=== PATIENT | female | born 2000 | race Caucasian/White ===

== ENCOUNTER 2020-04-26 10:27 | Emergency (ER) | payer BC, OTHER ==
[2020-04-26] MEDS ORDERED: NA CHLORIDE 0.9% 1,000 ML ONE (11:46)
--- NOTE | 2020-04-26 11:47 | RAD REPORT ---
EXAM DESCRIPTION: Kevin Single View04/26/2020 11:32 am CLINICAL HISTORY: cough COMPARISON: none FINDINGS: The lungs appear clear of acute infiltrate. The heart is normal size. The main pulmonary artery is mildly prominent.
[2020-04-26 11:57] LABS: Absolute Lymphocytes (CBC) 2.2 K/uL (0.7-4.9); Basophils % 0.6 % (0-1.3); Hematocrit 41.4 % (36.0-45.0); Lymphocytes % 29.8 % (15.3-44.8); MPV 7.6 fL (7.6-11.3)
[2020-04-26 12:23] LABS: ALT/SGPT 22 U/L (12-78); AST/SGOT 12 U/L (15-37); Alkaline Phosphatase 71 U/L (45-117); BUN Blood Urea Nitrogen 8 mg/dL (7-18); Bicarbonate 25 mmol/L (21-32); Bilirubin Total 0.5 mg/dL (0.2-1.0); Glucose Level 97 mg/dL (74-106); Potassium 3.9 mmol/L (3.5-5.1); Protein, Total 7.2 g/dL (6.4-8.2); Sodium Level 144 mmol/L (136-145); Troponin (Emerg Dept Use Only) < 0.02 ng/mL (0.0-0.045)
[2020-04-26 12:27] LABS: Urine Blood NEGATIVE (NEG); Urine Glucose NEGATIVE (NEG); Urine Protein NEGATIVE (NEG)
--- NOTE | 2020-04-26 12:44 | ER ---
Nurse's Notes [facility] Name: Buffy Mcfadden Age: 19 yrs Sex: Female : 2000 Arrival Date: 04/26/2020 Time: 10:29 Bed 7 Private MD: Diagnosis: Weakness;Syncope and collapse;Congenital pulmonary valve stenosis Presentation: 04/26 10:34 Chief complaint: Patient states: "for the last week or 2 I've been feeling puny and aa5 tired and today I got to work and I felt very dizzy and next type I know I woke up on the floor". Pt reports syncopal episode for a few seconds. Pt denies nausea/vomiting, denies pain, denies cough, denies fever, denies sore throat. Pt's father states "she's been on [employer]risystem for about 5 months and has lost a lot of weight so I don't know if that is contributing to it". 10:34 Onset of symptoms was April 26, 2020. aa5 10:34 Acuity: GEOVANNA 3 aa5 10:34 Coronavirus screen: Proceed with normal triage. Patient denies a cough. Patient denies aa5 shortness of breath or difficulty breathing. Patient denies measured and/or subjective temperature greater than 100.4F prior to today's visit. Patient denies travel on a cruise ship or to a country the [facility] currently lists as an affected area. Patient denies contact with known and/or suspected case of COVID-19. 10:34 Method Of Arrival: Ambulatory aa5 10:34 Ebola Screen: Patient negative for fever greater than or equal to 101.5 degrees aa5 Fahrenheit, and additional compatible Ebola Virus Disease symptoms. Risk Assessment: Do you want to hurt yourself or someone else? Patient reports no desire to harm self or others. 10:34 Initial Sepsis Screen: Does the patient meet any 2 criteria? No. Patient's initial aa5 sepsis screen is negative. Does the patient have a suspected source of infection? No. Patient's initial sepsis screen is negative. Triage Assessment: 10:40 General: Appears in no apparent distress. comfortable, Behavior is cooperative, bp appropriate for age, anxious. Pain: Denies pain. EENT: No deficits noted. Neuro: Reports dizziness, a syncopal episode. Cardiovascular: Rhythm is sinus rhythm. Respiratory: No deficits noted. GI: No signs and/or symptoms were reported involving the gastrointestinal system. : No signs and/or symptoms were reported regarding the genitourinary system. Derm: No deficits noted. Musculoskeletal: No deficits noted. Historical: - Allergies: 10:34 Bees; aa5 - Home Meds: 10:34 None [Active]; aa5 - PMHx: 10:34 Pulmonary Valve Stenosis; aa5 - PSHx: 10:34 None; aa5 - Immunization history:: Adult Immunizations up to date. - Social history:: Smoking status: Patient denies any tobacco usage or history of. - Family history:: not pertinent. Screenin:40 Abuse screen: Denies threats or abuse. Denies injuries from another. Nutritional bp screening: No deficits noted. Tuberculosis screening: No symptoms or risk factors identified. Fall Risk Fall in past 12 months (25 points). No secondary diagnosis (0 pts). No IV (0 pts). Ambulatory Aid- None/Bed Rest/Nurse Assist (0 pts). Gait- Normal/Bed Rest/Wheelchair (0 pts) Mental Status- Oriented to own ability (0 pts). Total Phillips Fall Scale indicates Low Risk Score (25-44 pts). Fall prevention measures have been instituted. Side Rails Up X 2 Placed close to Nursing Station Frequent Obs/Assesments occuring As available Patient and Family Educated on Fall Prevention Program and strategies. Assessment: 10:40 General: SEE TRIAGE NOTE. bp 10:50 General: Appears in no apparent distress. comfortable, Behavior is anxious. Pain: rb1 Denies pain. Neuro: Level of Consciousness is awake, alert, obeys commands, Oriented to person, place, time, situation. Neuro: Reports dizziness, a syncopal episode. Cardiovascular: Capillary refill < 3 seconds. Respiratory: Airway is patent Respiratory effort is even, unlabored, Respiratory pattern is regular, symmetrical. GI: No signs and/or symptoms were reported involving the gastrointestinal system. : No signs and/or symptoms were reported regarding the genitourinary system. Derm: Skin is pink, warm \\T\\ dry. 11:49 Reassessment: ALL CURRENT ORDERS COMPLETED, RESULTS PENDING. bp 12:17 Reassessment: Patient appears in no apparent distress at this time. Gave the pt. ice rb1 chips. Father at the bedside. 12:59 Reassessment: Patient appears in no apparent distress at this time. Patient and/or rb1 family updated on plan of care and expected duration. Pain level reassessed. Patient is alert, oriented x 3, equal unlabored respirations, skin warm/dry/pink. 13:10 Reassessment: Discharge pending due to pt wanting to speak with Dr. Mooney. Dr. suresh Mooney notified. 13:47 Reassessment: Patient appears in no apparent distress at this time. No changes from [facility] previously documented assessment. Vital Signs: 10:34 BP 139 / 95; Pulse 98; Resp 18 S; Temp 98.6(O); Pulse Ox 100% on R/A; Weight 78.47 kg aa5 (R); Height 5 ft. 6 in. (167.64 cm) (R); Pain 0/10; 11:46 BP 133 / 80; Pulse 72; Resp 15; Temp 98.3(TE); Pulse Ox 99% on R/A; 5 12:51 BP 120 / 71 Supine; Pulse 79; Pulse Ox 99% ; rb1 12:53 BP 121 / 74 Sitting; Pulse 68; Pulse Ox 100% ; rb1 12:55 BP 114 / 86 Standing; Pulse 75; Pulse Ox 100% ; rb1 13:15 BP 117 / 84; Pulse 62; Resp 19; Pulse Ox 99% on R/A; rb1 10:34 Body Mass Index 27.92 (78.47 kg, 167.64 cm) aa5 ED Course: 10:29 Patient arrived in ED. as 10:34 Suly Pastor, RN is Primary Nurse. rb1 10:34 Arm band placed on Patient placed in an exam room, on a stretcher. aa5 10:35 Abdifatah Mooney MD is Attending Physician. abram 10:40 Patient has correct armband on for positive identification. Placed in gown. Bed in low bp position. Call light in reach. Side rails up X2. Adult w/ patient. 10:44 Triage completed. aa5 11:32 Chest Single View XRAY In Process Unspecified. EDMS 11:43 Warm blanket given. patient monitor on. Pulse ox on. NIBP on. mh5 11:43 Urine collected: clean catch specimen, clear. 5 11:45 Inserted saline lock: 20 gauge in right antecubital area, using aseptic technique. bp Blood collected. 12:43 Jonathan Madden MD is Referral Physician. [facility] 13:48 No provider procedures requiring assistance completed. IV discontinued, intact, rb1 bleeding controlled, No redness/swelling at site. Pressure dressing applied. Administered Medications: 11:45 Drug: NS 0.9% 1000 ml Route: IV; Rate: 1 bolus; Site: right antecubital; bp 12:53 Follow up: IV Status: Completed infusion rb1 Outcome: 12:43 Discharge ordered by MD. [facility] 13:48 Discharged to home ambulatory, with family. rb1 13:48 Condition: stable 13:48 Discharge instructions given to patient, Instructed on discharge instructions, follow up and referral plans. Demonstrated understanding of instructions, follow-up care, Prescriptions given X none 13:49 Patient left the ED. aa5 Signatures: Dispatcher [employer] EDMS Abdifatah Mooney MD MD cha Martinez, Amelia as Calderon, Audri, RN RN aa5 Suly Pastor RN RN Janki Bauer 5 Cesario Ramírez RN RN bp Corrections: (The following items were deleted from the chart) 10:46 10:34 Chief complaint: Patient states: "for the last week or 2 I've been feeling puny aa5 and tired and today I got to work and I felt very dizzy and next type I know I woke up on the floor". Pt reports syncopal episode for a few seconds. Pt denies nausea/vomiting, denies pain, denies cough, denies fever, denies sore throat. aa5
--- NOTE | 2020-04-26 12:45 | EDPHYS ---
Physician Documentation [facility] Name: Buffy Mcfadden Age: 19 yrs Sex: Female : 2000 Arrival Date: 04/26/2020 Time: 10:29 Bed 7 Private MD: ED Physician Abdifatah Mooney HPI: 04/26 11:23 This 19 yrs old Female presents to ER via Ambulatory with complaints of abram Dizziness, Passed Out Prior To Arrival, Fatigue. 11:23 The patient presents with dizziness, feeling faint. Onset: The symptoms/episode abram began/occurred just prior to arrival. Context: occurred while the patient was standing. Modifying factors: The symptoms are alleviated by nothing, the symptoms are aggravated by nothing. Associated signs and symptoms: The patient has no apparent associated signs or symptoms. Severity of symptoms: At their worst the symptoms were mild in the emergency department the symptoms are unchanged. Patient's baseline: Neuro: alert and fully oriented. The patient has not experienced similar symptoms in the past. Historical: - Allergies: 10:34 Bees; aa5 - Home Meds: 10:34 None [Active]; aa5 - PMHx: 10:34 Pulmonary Valve Stenosis; aa5 - PSHx: 10:34 None; aa5 - Immunization history:: Adult Immunizations up to date. - Social history:: Smoking status: Patient denies any tobacco usage or history of. - Family history:: not pertinent. ROS: 11:23 Constitutional: Negative for fever, chills, and weight loss, Eyes: Negative for injury, abram pain, redness, and discharge, ENT: Negative for injury, pain, and discharge, Neck: Negative for injury, pain, and swelling, Cardiovascular: Negative for chest pain, palpitations, and edema, Respiratory: Negative for shortness of breath, cough, wheezing, and pleuritic chest pain, Abdomen/GI: Negative for abdominal pain, nausea, vomiting, diarrhea, and constipation, Back: Negative for injury and pain, : Negative for injury, bleeding, discharge, and swelling, MS/Extremity: Negative for injury and deformity, Skin: Negative for injury, rash, and discoloration, Neuro: Negative for headache, weakness, numbness, tingling, and seizure, Psych: Negative for depression, anxiety, suicide ideation, homicidal ideation, and hallucinations, Endocrine: Negative for neck swelling, polydipsia, polyuria, polyphagia, and marked weight changes, Hematologic/Lymphatic: Negative for swollen nodes, abnormal bleeding, and unusual bruising. Exam: 11:23 Constitutional: This is a well developed, well nourished patient who is awake, alert, abram and in no acute distress. Head/Face: Normocephalic, atraumatic. Eyes: Pupils equal round and reactive to light, extra-ocular motions intact. Lids and lashes normal. Conjunctiva and sclera are non-icteric and not injected. Cornea within normal limits. Periorbital areas with no swelling, redness, or edema. ENT: Nares patent. No nasal discharge, no septal abnormalities noted. Tympanic membranes are normal and external auditory canals are clear. Oropharynx with no redness, swelling, or masses, exudates, or evidence of obstruction, uvula midline. Mucous membranes moist. Neck: Trachea midline, no thyromegaly or masses palpated, and no cervical lymphadenopathy. Supple, full range of motion without nuchal rigidity, or vertebral point tenderness. No Meningismus. Chest/axilla: Normal chest wall appearance and motion. Nontender with no deformity. No lesions are appreciated. Cardiovascular: Regular rate and rhythm with a normal S1 and S2. No gallops, murmurs, or rubs. Normal PMI, no JVD. No pulse deficits. Respiratory: Lungs have equal breath sounds bilaterally, clear to auscultation and percussion. No rales, rhonchi or wheezes noted. No increased work of breathing, no retractions or nasal flaring. Abdomen/GI: Soft, non-tender, with normal bowel sounds. No distension or tympany. No guarding or rebound. No evidence of tenderness throughout. Back: No spinal tenderness. No costovertebral tenderness. Full range of motion. Skin: Warm, dry with normal turgor. Normal color with no rashes, no lesions, and no evidence of cellulitis. MS/ Extremity: Pulses equal, no cyanosis. Neurovascular intact. Full, normal range of motion. Neuro: Awake and alert, GCS 15, oriented to person, place, time, and situation. Cranial nerves II-XII grossly intact. Motor strength 5/5 in all extremities. Sensory grossly intact. Cerebellar exam normal. Normal gait. Psych: Awake, alert, with orientation to person, place and time. Behavior, mood, and affect are within normal limits. 11:23 Musculoskeletal/extremity: DVT Exam: No signs of deep vein thrombosis. no pain, no swelling, no tenderness, negative Homans' sign noted on exam, no appreciated bluish discoloration, no erythema, no increased warmth. 11:27 ECG was reviewed by the Attending Physician. abram 13:13 Neuro: Orientation: is normal, appropriate for stated age, no acute changes, Mentation: abram is normal, appropriate for stated age, no acute changes, Memory: is normal, appropriate for stated age, no acute changes, Cranial nerves: grossly normal, is grossly normal based on the patient's age, no acute changes, Cerebellar function: is grossly normal, is grossly normal based on the patient's age, no acute changes, Motor: moves all fours, strength is normal, strength is 5/5 in all extremities, Sensation: is normal, no obvious gross deficits, appropriate no acute changes, Gait: is steady, appropriate for age, Deep tendon reflexes are 2+ (normal) in the bilateral brachioradialis, bicep, tricep and patellar and Achilles tendons, Babinski testing is normal, seizure activity, is not displayed by the patient, Abnormal movements: there are no abnormal movements. Vital Signs: 10:34 BP 139 / 95; Pulse 98; Resp 18 S; Temp 98.6(O); Pulse Ox 100% on R/A; Weight 78.47 kg aa5 (R); Height 5 ft. 6 in. (167.64 cm) (R); Pain 0/10; 11:46 BP 133 / 80; Pulse 72; Resp 15; Temp 98.3(TE); Pulse Ox 99% on R/A; mh5 12:51 BP 120 / 71 Supine; Pulse 79; Pulse Ox 99% ; rb1 12:53 BP 121 / 74 Sitting; Pulse 68; Pulse Ox 100% ; rb1 12:55 BP 114 / 86 Standing; Pulse 75; Pulse Ox 100% ; rb1 13:15 BP 117 / 84; Pulse 62; Resp 19; Pulse Ox 99% on R/A; rb1 10:34 Body Mass Index 27.92 (78.47 kg, 167.64 cm) aa5 MDM: 10:35 Patient medically screened. [facility] 11:26 Data reviewed: vital signs, nurses notes, lab test result(s), EKG, radiologic studies, abram plain films. 12:40 Differential diagnosis: cardiac arrhythmia, generalized weakness, head injury, abram hypovolemia, idiopathic dizziness, near-syncope, , syncope, vertigo. Data interpreted: cardiac monitor: rate is 72 beats/min, Pulse oximetry: on room air is 99 %. Test interpretation: by ED physician or midlevel provider: ECG, plain radiologic studies. Counseling: I had a detailed discussion with the patient and/or guardian regarding: the historical points, exam findings, and any diagnostic results supporting the discharge/admit diagnosis, lab results, radiology results, the need for outpatient follow up, for definitive care, a packing machine feeder. Response to treatment: the patient's symptoms have markedly improved after treatment. ED course: pt will be dc'd with close follow up, dr madden to see, limit work. 13:14 ED course: pt and dad explained the importance of cardiology follow up with dr madden. [facility] 04/26 11:23 Order name: CBC with Diff; Complete Time: 12:[address] [facility] 04/26 11:23 Order name: Comprehensive Metabolic Panel; Complete Time: 12:[address] [facility] 04/26 11:23 Order name: TSH; Complete Time: 12:[address] [facility] 04/26 11:23 Order name: Troponin (emerg Dept Use Only); Complete Time: 12:[address] [facility] 04/26 11:26 Order name: D-Dimer; Complete Time: 12:[address] [facility] 04/26 11:55 Order name: Urine Dipstick--Ancillary (enter results); Complete Time: 12:40 04/26 11:23 Order name: EKG; Complete Time: 11:24 abram 04/26 11:23 Order name: EKG - Nurse/Tech; Complete Time: 11:[address] [facility] 04/26 11:23 Order name: Chest Single View XRAY; Complete Time: 12:[address] [facility] 04/26 11:23 Order name: Urine Dipstick-Ancillary (obtain specimen); Complete Time: 11:[address] [facility] 04/26 11:23 Order name: Urine Test (obtain specimen); Complete Time: 11:[address] [facility] 04/26 11:55 Order name: Urine --Ancillary (enter results); Complete Time: 12:40 04/26 12:40 Order name: Orthostatics; Complete Time: 12:[address] [facility] EC:27 Rate is 106 beats/min. Rhythm is regular. QRS [place] is Normal. MS interval is normal. abram QRS interval is normal. QT interval is normal. No Q waves. T waves are Normal. No ST changes noted. Clinical impression: Sinus tachycardia. Interpreted by me. Reviewed by me. Administered Medications: 11:45 Drug: NS 0.9% 1000 ml Route: IV; Rate: 1 bolus; Site: right antecubital; bp 12:53 Follow up: IV Status: Completed infusion rb1 Disposition: 04/26/20 12:43 Discharged to Home. Impression: Weakness, Syncope and collapse, Congenital pulmonary valve stenosis. - Condition is Stable. - Discharge Instructions: Near-Syncope, Syncope, Weakness, Fatigue, Near-Syncope, [id number], Syncope, [id number], Weakness, [id number]. - Work release form, Medication Reconciliation Form, Thank You Letter, Antibiotic Education, Prescription Opioid Use form. - Follow up: Private Physician; When: 2 - 3 days; Reason: Recheck today's complaints, Continuance of care, Re-evaluation by your physician. Follow up: Jonathan Madden MD; When: 2 - 3 days; Reason: Recheck today's complaints, Continuance of care, Re-evaluation by your physician. - Problem is new. - Symptoms have improved. Signatures: Dispatcher [employer] EDMS Abdifatah Mooney MD MD cha Calderon, Audri, RN RN aa5 Cesario Ramírez RN RN Suly Song RN rb1 Corrections: (The following items were deleted from the chart) 13:49 12:43 04/26/2020 12:43 Discharged to Home. Impression: Weakness; Syncope and collapse; aa5 Congenital pulmonary valve stenosis. Condition is Stable. Forms are Medication Reconciliation Form, Thank You Letter, Antibiotic Education, Prescription Opioid Use. Follow up: Private Physician; When: 2 - 3 days; Reason: Recheck today's complaints, Continuance of care, Re-evaluation by your physician. Follow up: Jonathan Madden; When: 2 - 3 days; Reason: Recheck today's complaints, Continuance of care, Re-evaluation by your physician. Problem is new. Symptoms have improved. abram
[2020-04-26 14:01] VITALS: TEMP 98.6
[2020-04-26 14:08] VITALS: BP 117/84; O2SAT 99
== END 2020-04-26 13:49 | disposition home or self-care (01) ==
LOC: ER 10:27
DX: Q22.1 Congenital pulmonary valve stenosis (principal); R53.1 Weakness; Z91.030 Bee allergy status
CPT/HCPCS: 93005; 85025; 36415; 81025; 85379; 84443; 81003; 84484; 80053; 71045; 96360; 99284; J7030

== ENCOUNTER → 2023-11-10 | Emergency (ER) | payer OTHER ==
--- OUTSIDE RECORDS SUMMARY | 2023-11-10 13:45 | XMS REPORT | Continuity of Care Document ---
Author Name Unknown Address [address] [facility] [address] [place] [address] [facility] thconnect Address [address] [place] [address] Care Team Providers Care Stab Setter And Driller Name Role Phone LORI KENNEY Attending Clinician Unavailable GC_CARISSA_Noorpriti Attending Clinician Unavail able HENRRY MAURICE Attending Clinician Unavailable LAB90 Attending Clinician Unavailable GC_CARISSA_Noorpriti Admitting Clinician Unavail able Payers Payer Name Policy Type Policy Number Effective Date Expirati on Date Source [facility] 3 [id number] 2022 00:00:00 [facility] [id number] Problems Condition Name Condition Details Condition Category Status Onset Date Resolution Date Last Treatment Date Treating Clinician Comments Source Moderate persistent asthma with acute exacerbati on Moderate persistent asthma with acute exacerbati on Disease Active 2021-11 00:00: 00 Yolanda colon Seasonal allergic rhinitis due to pollen Seasonal allergic rhinitis due to pollen Disease Active 2021-11 00:00: 00 Yolanda Ocampoa isaiah Nonrheumat ic pulmonary valve stenosis Nonrheumat ic pulmonary valve stenosis Disease Active 2021-11 00:00: 00 Overview: Formattin g of this note might be different from the original. Cardiolog y-Dr. Chano colon Bronchitis Bronchitis Disease Active 2021-11 00:00: 00 Yolanda Bass Externa isaiah Other fatigue Other fatigue Disease Active 2021-11 00:00: 00 Yolanda Ocampoa isaiah Social History Social Habit Start Date Stop Date Quantity Comments Source History SDOH Alcohol Frequency Yolanda rowe - External History SDOH Alcohol Std Drinks Yolanda baker - External History SDOH Alcohol Binge Yolanda Savage - External Education 2022-10-21 00:00:00 2022-10-21 00:00:00 13 Yolanda Savage - External Tobacco use and exposure 2022-10-21 00:00:00 2022-10-21 00:00:00 Smokeless tobacco non-user Yolanda Savage - External Alcohol intake 2022-10-21 00:00:00 2022-10-21 00:00:00 Current drinker of alcohol (finding) Yolanda Savage - External Alcohol Comment 2022-10-21 00:00:00 2022-10-21 00:00:00 rarely Yolandasonja Savage - Melecio Sex Assigned At 2000 00:00:00 2000 00:00:00 Yolanda Savage - External Smoking Status Start Date Stop Date Source Never smoked tobacco Yolanda Savage - External Medications Ordered Medication Name Filled Medication Name Start Date Stop Date Current Medication? Ordering Clinician Indication Dosage Frequency Signature (SIG) Comments Components Source Cetirizine 10 MG oral Tablet 2021-11 13:44: 03 Yes 10mg Take 10 mg by mouth daily Yolanda colon predniSONE (DELTASONE) 10 MG oral tablet 2021-11 00:00: 00 Yes [id number] 10mg Take 1 tablet (10 mg total) by mouth daily Yolanda colon Fluticasone -Salmeterol (Advair Diskus) 250-50 MCG/ACT inhalation AEROSOL POWDER, BREATH ACTIVATED 2021-11 00:00: 00 Yes [id number] 1{puff} Inhale 1 puff into the lungs 2 times daily Yolanda colon Albuterol HFA 108 (90 Base) MCG/ACT IN AERS 2021-11 00:00: 00 Yes [id number] 2{puff} Q.25D Inhale 2 puffs into the lungs every 6 hours as needed for wheezing Yolanda colon FLUTICASONE PROPIONATE, NASAL, 50 MCG/ACT nasal Suspension 2021-11 00:00: 00 Yes [id number] 50ug Use 1 spray (50 mcg total) in each nostril daily Yolanda colon Albuterol HFA 108 (90 Base) MCG/ACT IN AERS 2021-11 00:00: 00 11-02 00:00 :00 No TAKE 1 (INHALATIO N) EVERY 4 HOURS ( NEEDED FOR COUGH) Yolanda colon Trazodone HCl 100 MG oral Tablet 2021-11 09:26: 26 Yes 100mg Take 100 mg by mouth nightly Yolanda Bass Externa isaiah Trazodone HCl 100 MG oral Tablet 2021-11 09:26: 26 Yes 100mg Take 100 mg by mouth nightly Yolanda colon Benzonatate (Tessalon Perles) 100 MG oral Capsule 2021-11 00:00: 00 Yes [id number] 100mg Q.[id number] 3D Take 1 capsule (100 mg total) by mouth 3 times daily as needed for cough Yolanda colon predniSONE (DELTASONE) 10 MG oral tablet 2021-11 00:00: 00 Yes [id number] One pill twice daily for 5 days then one pill daily for 5 days Yolanda colon Benzonatate (Tessalon Perles) 100 MG oral Capsule 2021-11 00:00: 00 Yes [id number] 100mg Q.[id number] 3D Take 1 capsule (100 mg total) by mouth 3 times daily as needed for cough Yolanda colon predniSONE (DELTASONE) 10 MG oral tablet 2021-11 00:00: 00 11-02 00:00 :00 No [id number] One pill twice daily for 5 days then one pill daily for 5 days Yolanda colon Azithromyci n 250 MG oral Tablet 2021-11 00:00: 00 10-27 05:59 :00 No [id number] Take 2 tablets by mouth on day 1 then 1 tablet by mouth daily for 4 days thereafter . Yolanda colon Albuterol HFA 108 (90 Base) MCG/ACT IN AERS 2021-11 00:00: 00 Yes TAKE 1 (INHALATIO N) EVERY 4 HOURS ( NEEDED FOR COUGH) Yolanda colon Cefdinir 300 MG oral Capsule 2021-11 00:00: 00 Yes TAKE 1 CAPSULE BY MOUTH TWICE A DAY FOR 10 DAYS Yolanda colon Cefdinir 300 MG oral Capsule 2021-11 00:00: 00 11-02 00:00 :00 No TAKE 1 CAPSULE BY MOUTH TWICE A DAY FOR 10 DAYS Yolanda colon Promethazin e-DM 6.25-15 MG/5ML oral Syrup 2021-11 00:00: 00 10-21 00:00 :00 No 5mL Q.25D Take 5 mL by mouth every 6 hours as needed Yolanda colon Vital Signs Vital Name Observation Time Observation Value Comments S ource Systolic blood pressure 2022-10-21 15:23:00 102 mm[Hg] Yolanda hardy - External Diastolic blood pressure 2022-10-21 15:23:00 60 mm[Hg] Yolanda hardy - External Heart rate 2022-10-21 15:23:00 92 /min Yuko Savage - External Body temperature 2022-10-21 15:23:00 36.78 Rhoda Yolanda Savage - External Respiratory rate 2022-10-21 15:23:00 20 /min Yolanda Savage - External Body height 2022-10-21 15:23:00 175.3 cm Nunu Savage - External Body weight 2022-10-21 15:23:00 90.538 kg Nunu Savage - External BMI 2022-10-21 15:23:00 29.48 kg/m2 Nunu Savage - External Oxygen saturation in Arterial blood by Pulse oximetry 2022-10-21 15:23:00 97 /min Yolanda hardy - External Encounters Start Date/Time End Date/Time Encounter Type Admission Type Attending [facility] Care Department Encounter ID Source 2023-04-28 14:45:00 2023-04-28 14:45:00 Outpatient LORI KENNEY [id number] Yolanda Savage 2022-12-27 00:00:00 2022-12-27 00:00:00 Outpatient GC_SWHAOMC_ Nooruddin PRIV PRIV [id number] [facility] 2022-12-26 00:00:00 2022-12-26 00:00:00 Outpatient [facility] PRIV [id number] [facility] 2022-11-24 10:45:00 2022-11-24 10:45:00 Outpatient PREZAS, HENRRY YOLANDA GUERRERO [id number] [facility] 2022-11-18 09:15:00 2022-11-18 09:15:00 Outpatient PREZAS, HENRRY GUERRERO [id number] [facility] 2022-11-02 13:45:00 2022-11-02 13:45:00 Outpatient PREZAS, HENRRY GUERRERO [id number] [facility] 2022-11-02 00:00:00 2022-11-02 00:00:00 Outpatient PREZAS, HENRRY GUERRERO [id number] [facility] 2022-11-01 00:00:00 2022-11-01 00:00:00 Outpatient PREZAS, HENRRY GUERRERO [id number] [facility] 2022-10-22 09:15:00 2022-10-22 09:15:00 Outpatient LAB90 YOLANDA GUERRERO [id number] [facility] 2022-10-21 10:00:00 2022-10-21 10:00:00 Outpatient LAB90 YOLANAD GUERRERO [id number] [facility] 2022-10-21 09:30:00 2022-10-21 09:30:00 Outpatient PREZAS, HENRRY GUERRERO [id number] Yolanda [facility]
--- NOTE | 2023-11-10 15:17 | RAD REPORT ---
EXAM DESCRIPTION: RAD - Chest Single View - 11/10/2023 3:11 pm CLINICAL HISTORY: CHEST PAIN COMPARISON: <Comparisons> FINDINGS: Lines: None. Lungs: No evidence of edema or pneumonia. Pleural: No significant pleural effusions or pneumothorax. Cardiac: The heart size is within normal limits. Mediastinum: Within normal limits. Bones: No acute fractures. Other: None IMPRESSION: No acute cardiopulmonary disease.
[2023-11-10 15:59] LABS: Absolute Lymphocytes (CBC) 2.2 K/uL (0.7-4.9); Hematocrit 42.3 % (36.0-45.0); Lymphocytes % 25.4 % (15.3-44.8); MCV 85.8 fL (80-100); MPV 7.1 fL (7.6-11.3); Platelets 317 thou/uL (152-406); RBC Red Blood Cell Count 4.93 M/uL (3.86-4.86)
[2023-11-10 16:13] LABS: BUN Blood Urea Nitrogen 7 mg/dL (7-18); Bicarbonate 25 mEq/L (21-32); Glomerular Filtration Rate 111 ml/min (=/>90); Glucose Level 84 mg/dL (74-106); NT PRO-BNP 8 pg/mL (<125); Sodium Level 138 mEq/L (136-145)
[2023-11-10 16:17] LABS: Potassium 3.9 mEq/L (3.5-5.1); Troponin High Sensitivity < 3.0 pg/mL (<58.9)
--- NOTE | 2023-11-10 16:50 | EDPHYS ---
Physician Documentation [facility] Name: Buffy Mcfadden Age: 23 yrs Sex: Female : 2000 Arrival Date: 11/10/2023 Time: 13:42 Bed 11 Private MD: ED Physician Sanjeev Wolf HPI: 11/10 14:33 This 23 yrs old Female presents to ER via Ambulatory with complaints of Chest Pain. ec2 14:33 Patient arrives today due to concern for chest pain. States that she experiencing chest ec2 pain and palpitations as well as diffuse upper and lower extremity numbness. States that symptoms started approximately several hours ago. Patient reports no significant difficulty breathing. Reports that she is on an appetite suppression medication, also had taken some caffeine today. Denies any histories of significant medical disease, no cardiac disease, no history of blood clots.. KITCHEN CHEF: 15:45 LMP N/A - control method, Not tl4 Historical: - Allergies: 14:24 Bees; cm10 - PMHx: 14:24 Pulmonary valve stenosis; cm10 - Immunization history:: Adult Immunizations unknown. - Social history:: Smoking status: Patient denies any tobacco usage or history of. ROS: 14:33 Constitutional: as per hpi ec2 Exam: 14:33 Constitutional: GEN: NAD Head: atraumatic Eyes: EOMI Ears: External ears are ec2 normal. CV: Tachycardia LUNGS: no respiratory distress, no wheezes, no rales, no rhonchi ABD: non-distended SKIN: no evidence of rashes MSK: no evidence of trauma NEURO: moves all extremities equally Vital Signs: 14:25 BP 140 / 101; Pulse 110; Resp 18; Temp 98.3; Pulse Ox 100% ; Weight 88.45 kg; Height 5 cm10 ft. 4 in. ; Pain 0/10; 15:30 BP 111 / 77; Pulse 92; Resp 20; Pulse Ox 100% on R/A; Pain 0/10; tl4 16:15 BP 130 / 91; Pulse 91; Resp 20; Pulse Ox 100% on R/A; Pain 0/10; tl4 16:48 Pulse 95; ec2 14:25 Body Mass Index 33.47 (88.45 kg, 162.56 cm) cm10 14:25 Pain Scale: Adult cm10 15:30 Pain Scale: Adult tl4 16:15 Pain Scale: Adult tl4 MDM: 14:22 Patient medically screened. ec2 14:33 Data reviewed: vital signs. ED course: Patient arrives today for evaluation of chest ec2 pain. Examination remarkable for well-appearing nontoxic individual is otherwise in no acute distress was noted with tachycardia on examination. Will obtain lab work, EKG, chest x-ray for further assessment of the patient and plan. Currently considering processes such as ACS, PE, low suspicion for dissection. Additionally possible medication reaction with a caffeine taken today.. 15:28 ED course: Chest x-ray shows no acute intrathoracic process.. ec2 15:41 ED course: EKG independently reviewed and interpreted by me, shows normal sinus rhythm, ec2 rate 99, no acute ST segment elevations, nonconcerning intervals.. 16:03 ED course: CBC is reassuring. D-dimer within normal ranges.. ec2 16:20 ED course: Metabolic profile is reassuring. Troponin is undetectable, BNP within normal ec2 ranges. . 16:48 ED course: I reassessed the patient remains well-appearing in no acute distress. Will ec2 discharge home have follow-up with primary care doctor instructed her on caffeine cessation which I suspect is the root of the patient's problem.. 12 14:33 Order name: Basic Metabolic Panel; Complete Time: 16:20 ec2 11/10 14:33 Order name: CBC with Diff; Complete Time: 16:03 ec2 11/10 14:33 Order name: D-Dimer; Complete Time: 16:03 ec2 11/10 14:33 Order name: NT PRO-BNP; Complete Time: 16:20 ec2 11/10 14:33 Order name: Troponin HS; Complete Time: 16:20 ec2 11/10 14:33 Order name: Test, Urine; Complete Time: 16:41 ec2 11/10 14:33 Order name: XRAY Chest (1 view); Complete Time: 15:28 ec2 11/10 14:33 Order name: EKG; Complete Time: 14:33 ec2 11/10 14:33 Order name: Cardiac monitoring; Complete Time: 15:07 ec2 11/10 14:33 Order name: EKG - Nurse/Tech; Complete Time: 15:43 ec2 11/10 14:33 Order name: IV Saline Lock; Complete Time: 15:43 ec2 11/10 14:33 Order name: Labs collected and sent; Complete Time: 15:43 ec2 11/10 14:33 Order name: O2 Per Protocol; Complete Time: 15:07 ec2 11/10 14:33 Order name: O2 Sat Monitoring; Complete Time: 15:07 ec2 11/10 16:20 Order name: Vital Signs; Complete Time: 17:01 ec2 Administered Medications: No medications were administered Disposition Summary: 11/10/23 16:49 Discharge Ordered Notes: Location: Home ec2 Condition: Stable ec2 Diagnosis - Palpitations ec2 Followup: ec2 - With: Private Physician - When: - Reason: Recheck today's complaints Discharge Instructions: - Discharge Summary Sheet ec2 - Palpitations ec2 Forms: - Medication Reconciliation Form ec2 - Thank You Letter ec2 - Antibiotic Education ec2 - Prescription Opioid Use ec2 - Patient Portal Instructions ec2 - Leadership Thank You Letter ec2 Signatures: Dispatcher [employer] Lou Maldonado RN RN cm10 Sanjeev Wolf MD MD ec2
--- NOTE | 2023-11-10 16:50 | ER ---
Nurse's Notes [facility] Name: Buffy Mcfadden Age: 23 yrs Sex: Female : 2000 Arrival Date: 11/10/2023 Time: 13:42 Bed 11 Private MD: Diagnosis: Palpitations Presentation: 11/10 14:25 Chief complaint: Patient states: Chest pain to the center of her chest that radiated cm10 down her back onset today at 0945. Pt states that the pain has now resolved. Pt reports that she was also having tingling to her arms and legs. Coronavirus screen: Vaccine status: Patient reports receiving the 2nd dose of the covid vaccine. Client denies travel out of the [place] in the last 14 days. Ebola Screen: Patient denies travel to an Ebola-affected area in the 21 days before illness onset. No symptoms or risks identified at this time. Initial Sepsis Screen: Does the patient meet any 2 criteria? No. Patient's initial sepsis screen is negative. Does the patient have a suspected source of infection? No. Patient's initial sepsis screen is negative. Risk Assessment: Do you want to hurt yourself or someone else? Patient reports no desire to harm self or others. Onset of symptoms was November 10, 2023. 14:25 Method Of Arrival: Ambulatory cm10 14:25 Acuity: GEOVANNA 3 cm10 Triage Assessment: 14:27 General: Appears in no apparent distress. comfortable, Behavior is calm, cooperative. cm10 Pain: Denies pain. Neuro: No deficits noted. Ramirez Agitation-Sedation Scale (RASS): 0 - Alert and Calm Level of Consciousness is awake, alert, obeys commands, Oriented to person, place, time, situation. Cardiovascular: Reports chest pain, shortness of breath, Patient's skin is warm and dry. FLEET TECHNICIAN: 15:45 LMP N/A - control method, Not tl4 Historical: - Allergies: 14:24 Bees; cm10 - PMHx: 14:24 Pulmonary valve stenosis; cm10 - Immunization history:: Adult Immunizations unknown. - Social history:: Smoking status: Patient denies any tobacco usage or history of. Screenin:44 [facility] ED Fall Risk Assessment (Adult) History of falling in the last 3 months, tl4 including since admission No falls in past 3 months (0 pts) Confusion or Disorientation No (0 pts) Intoxicated or Sedated No (0 pts) Impaired Gait No (0 pts) Mobility Assist Device Used No (0 pt) Altered Elimination No (0 pt) Score/Fall Risk Level 0 - 2 = Low Risk Oriented to surroundings, Maintained a safe environment, Educated pt \T\ family on fall prevention, incl call for assistance when getting out of bed. Abuse screen: Denies threats or abuse. Denies injuries from another. Nutritional screening: No deficits noted. Tuberculosis screening: No symptoms or risk factors identified. Assessment: 15:44 Reassessment: No changes from previously documented assessment. Patient and/or family tl4 updated on plan of care and expected duration. Pain level reassessed. Patient is alert, oriented x 3, equal unlabored respirations, skin warm/dry/pink. Pain: Pain does not radiate. Pain began suddenly, 1 hour ago. Vital Signs: 14:25 BP 140 / 101; Pulse 110; Resp 18; Temp 98.3; Pulse Ox 100% ; Weight 88.45 kg; Height 5 cm10 ft. 4 in. ; Pain 0/10; 15:30 BP 111 / 77; Pulse 92; Resp 20; Pulse Ox 100% on R/A; Pain 0/10; tl4 16:15 BP 130 / 91; Pulse 91; Resp 20; Pulse Ox 100% on R/A; Pain 0/10; tl4 16:48 Pulse 95; ec2 14:25 Body Mass Index 33.47 (88.45 kg, 162.56 cm) cm10 14:25 Pain Scale: Adult cm10 15:30 Pain Scale: Adult tl4 16:15 Pain Scale: Adult tl4 ED Course: 13:58 Patient arrived in ED. mg5 14:01 Sanjeev Wolf MD is Attending Physician. ec2 14:26 Triage completed. cm10 14:27 Arm band placed on Patient placed in waiting room. cm10 15:06 Noman Mcnamara is Primary Nurse. tl4 15:07 XRAY Chest (1 view) Sent. tl4 15:13 XRAY Chest (1 view) In Process Unspecified. EDMS 15:43 Basic Metabolic Panel Sent. tl4 15:43 CBC with Diff Sent. tl4 15:43 D-Dimer Sent. tl4 15:43 NT PRO-BNP Sent. tl4 15:43 Troponin HS Sent. tl4 15:44 Inserted saline lock: 20 gauge in right antecubital area, using aseptic technique. tl4 Blood collected. 15:45 Placed in gown. Bed in low position. Call light in reach. Side rails up X 1. Adult w/ tl4 patient. Provided Education on: ED process. Client placed on continuous cardiac and pulse oximetry monitoring. NIBP monitoring applied. electronic device monitor on. 15:45 No provider procedures requiring assistance completed. Patient maintains SpO2 tl4 saturation greater than 95% on room air. 16:18 Test, Urine Sent. tl4 17:13 IV discontinued, intact, bleeding controlled, No redness/swelling at site. Pressure tl4 dressing applied. Administered Medications: No medications were administered Medication: 15:44 VIS not applicable for this client. tl4 Outcome: 16:49 Discharge ordered by . ec2 17:13 Discharged to home ambulatory, with family, tl4 17:13 Condition: stable 17:13 Discharge instructions given to patient, family, Instructed on discharge instructions, follow up and referral plans. Demonstrated understanding of instructions, follow-up care, 17:20 Patient left the ED. hb Signatures: Dispatcher [employer] EDMitzi Vega RN RN hb Martinez, Clarissa, RN RN cm10 Adri Case mg5 Sanjeev Wolf MD MD ec2 LogNoman tabor tl4
[2023-11-10 17:55] VITALS: TEMP 98.3; O2SAT 100
[2023-11-10 18:07] VITALS: BP 130/91
--- NOTE | 2023-11-11 15:30 | EKG ---
Test Date: 2023-11-10 Test Time: 15:24:39 Gill Box Tender: TL MEASUREMENT RESULTS: Intervals: Rate: 99 AR: 130 QRSD: 92 QT: 348 QTc: 446 [place]: P: 17 AR: 130 QRS: 80 T: 26 INTERPRETIVE STATEMENTS: Normal sinus rhythm Normal ECG Compared to ECG 04/26/2020 10:44:48 Sinus tachycardia no longer present Electronically Signed On 11-11-23 15:27:35 BLOOD BANK CUSTODIAN by Lamberto Sena
== END ==
LOC: ER 13:42
DX: R00.2 Palpitations (principal); R07.9 Chest pain, unspecified; Z91.030 Bee allergy status
CPT/HCPCS: 36415; 71045; 80048; 81025; 83880; 84484; 85025; 85379; 93005; 99285